=== PATIENT | male | born 1970 | race Caucasian/White ===

== ENCOUNTER 2023-01-08 16:17 | Emergency (ER) | payer BC, SELFPAY ==
[2023-01-08 16:24] VITALS: BP 149/94; PULSE 83; RESP 14; TEMP 37.1; O2SAT 98
--- NOTE | 2023-01-08 16:43 | ED.LOWEXIN ---
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 Pt has been to podiatry but notes it was a few years ago and a steroid injection was placed in the foot. 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 He additionally reports chronic right thumb pain that has also been slightly worse than usual without recent injury. He recalls having the right thumb dislocated ~6 years ago and the thumb was reduced. He doesn't feel the thumb was every reduced properly. He has continued to use the digit without difficulty but states he has pain with extension and does not feel the digit extends fully at the MCP joint. He couldn't go to work today because the pain in his foot was too severe and he requests a work excuse. He has not taken any OTC or prescription medications for symptom relief. He has no other complaints Related Data Allergies Allergy/AdvReac Type Severity Reaction Status Date / Time No Known Allergies Allergy Unverified 08/23/16 11:39 Review of Systems Musculoskeletal: Comments: refer to HPI Exam Const: General: cooperative, healthy appearing and comfortable HENMT: Head: normal to inspection Face/Nose/Sinus: Normal external nose present Mouth: Yes Normal oral and palatal mucosa present Eyes: General: appearance normal, both eyes and all related structures Conjunctivae: conjunctivae normal Sclera: sclerae normal Neck: Neck: normal visual inspection Lymphatic: no lymphadenopathy noted Resp: Effort & Inspection: normal respiratory effort and able to speak in complete sentences Auscultation: clear to auscultation bilaterally Cardio: Rate: regular rate Rhythm: regular rhythm Heart sounds: S1 normal heart sound present and S2 normal heart sound present Peripheral pulses: Peripheral pulses 2+ throughout GI: Inspection: normal to inspection Skin: General skin exam: normal color and no rashes or lesions noted Neuro: General: oriented to person, oriented to place, oriented to time, patient oriented x3 and gait normal Cognition (Neuro): normal cognition Speech: normal speech Extrem: Other: Pt has a 2 cm fixed, tender nodular eruption over the dorsal aspect of the right proximal midfoot, non fluctuant without overlying erythema or warmth. Distal PMS intact. THe right thumb ROM is intact. There is palpable hypertrophy at the base of the 1st proximal phalanx. extension and flexion against resistance is intact. No deformity, erythema or warmth noted. Course Course Emergency Course: pt advises he is here for referrals to podiatry and a provider capable of evaluating his chronic right thumb pain. Plan to refer to podiatry, hand with short steroid course until FU visit can be arranged. Imaging is deferred, as he has not experienced trauma to either area and advanced imaging is more likely indicated if there is concern for chronic ligamental injury or avascularity within the bone. Pt is agreeable with plan Level of Care: Express Care Visit ([id number]) Vital Signs Vital signs: Vital Signs Temperature 37.1 C 01/08/23 16:24 Pulse Rate 83 01/08/23 16:24 Respiratory Rate 14 01/08/23 16:24 Blood Pressure 149/94 H 01/08/23 16:24 Pulse Oximetry 98 01/08/23 16:24 Oxygen Delivery Room Air 01/08/23 16:24 Temperature 37.1 C 01/08/23 16:24 Pulse Rate 83 01/08/23 16:24 Respiratory Rate 14 01/08/23 16:24 Blood Pressure 149/94 H 01/08/23 16:24 Pulse Oximetry 98 01/08/23 16:24 Oxygen Delivery Room Air 01/08/23 16:24 MDM - Extremity Injury (Lower) MDM Narrative Medical decision making narrative: short steroid course, hand and podiatry
== END 2023-01-08 16:59 | disposition home or self-care (01) ==
PROVIDERS: Emergency Provider Nurse Practitioner Family
DX: G89.21 Chronic pain due to trauma (principal); M79.671 Pain in right foot; M79.644 Pain in right finger(s)
CPT/HCPCS: 99203; G0463

== ENCOUNTER 2023-07-01 16:13 | Emergency (ER) | payer OTHER, BC, SELFPAY ==
[2023-07-01 16:15] VITALS: BP 141/98; PULSE 87; RESP 18; TEMP 36.4; O2SAT 100
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
== END 2023-07-01 16:23 | disposition short-term general hospital (02) ==
PROVIDERS: Emergency Provider Registered Nurse
DX: S61.512A Laceration without foreign body of left wrist, initial encounter (principal); X58.XXXA Exposure to other specified factors, initial encounter; Y99.0 Civilian activity done for income or pay
CPT/HCPCS: 99212; G0463

== ENCOUNTER 2024-08-25 11:29 | Emergency (ER) | payer BC, SELFPAY ==
[2024-08-25 11:46] VITALS: BP 131/73; PULSE 69; RESP 18; TEMP 36.6; O2SAT 98
--- OUTSIDE RECORDS SUMMARY | 2024-08-25 11:49 | XMS_ITS | Patient Health Summary ---
Author Organization [facility] [employer] Address [address] [place] [address] Care Team Providers Care Soundscriber Mechanic Name Role Phone Unknown, Provider Primary Care Provider Unavaila ble Note from [facility] [employer] [facility],non-owned Affiliates and Associated Physician Practices is amultiple site organization consisting of ambulatory clinics and hospital sitesin [place], [place], [place] and [place]. This disclosure is being madepursuant to the Care Everywhere program and may not contain all information available regarding this patient. Last updated 18.[facility] [employer] Allergies No known active allergies Medications Be aware that medications may not be up to date on this document. Always verify current medications with the patient. No known medications Social History Tobacco Use Types Packs/Day Years Used Date Smoking Tobacco: Every Day Cigarettes Smokeless Tobacco: Never Tobacco Cessation:Ready to Q uit: Not Asked; Counseling Given: Not Answered Alcohol Use Standard Drinks/Week Comments Not Currently 0 (1 standard drink = 0.6 oz pur e alcohol) Sex and Gender Information Value Date Recorded Sex Assigned at Not on file Gender Identity Not on file Sexual Orientation Not on file Last Filed Vital Signs Vital Sign Reading Time Taken Comments Blood Pressure 142/80 07/01/2023 11:10 PM BAG VALVER Pulse 72 07/01/2023 11:10 PM BAG VALVER Temperature 36.4 C (97.6 F) 07/01/2023 11:10 PM BAG VALVER Respiratory Rate 17 07/01/2023 11:10 PM BAG VALVER Oxygen Saturation 96% 07/01/2023 11:10 PM BAG VALVER Inhaled Oxygen Concentration - - Weight 77.6 kg (171 lb) 07/01/2023 7:45 PM BAG VALVER Height 185.4 cm (6' 1 ) 07/01/2023 7:45 PM BAG VALVER Body Mass Index 22.56 07/01/2023 7:45 PM BAG VALVER Procedures * XR HAND LEFT 3VW OR MORE(Performed 07/01/2023) Performed for Laceration of left hand, foreign body presence unspecified, initial encounter Results * XR HAND LEFT 3VW OR MORE (07/01/2023 9:16 PM BAG VALVER) Anatomical Region Laterality Modality Wrist / Hand Radiographic Monse ging 07/01/2023 9:57 PM BAG VALVER Narrative 07/02/2023 2:36 AM BAG VALVER PROCEDURE: XR HAND LEFT 3VW OR MORE, DATE/TIME OF EXAM: 07/01/2023 9:16 PM, LOCATION [facility] INDICATION: S61.412A: Laceration of left hand, foreign body presence unspecified, initial encounter ADDITIONAL CLINICAL INFORMATION: Ordering Provider Reason For Exam: laceration COMPARISON: None. FINDINGS/IMPRESSION: Known laceration of the radial aspect of the distal forearm is not well visualized on the current study. There is no evidence of radiopaque foreign bodies. The osseous structures are intact and well aligned without acute fracture or dislocation. The joint spaces are preserved. Bone density and texture are normal. Report dictated by Adan Barbosa MD (residential mental health worker). Joe Brown MD have personally reviewed and interpreted this examination/study. > Interpreting Provider: Joe Barr MD on 07/02/2023 2:36 AM Procedure Note Joe Barr MD - 07/02/2023 PROCEDURE: XR HAND LEFT 3VW OR MORE, DATE/TIME OF EXAM: 39:16 PM, LOCATION [facility] INDICATION: S61.412A: Laceration of left hand, foreign body presence unspecified, initial encounter ADDITIONAL CLINICAL INFORMATION: Ordering Provider Reason For Exam: laceration COMPARISON: None. FINDINGS/IMPRESSION: Known laceration of the radial aspect of the distal forearm is not well visualized on the current study. There is no evidence of radiopaqueforeign bodies. The osseous structures are intact and well aligned without acutefracture or dislocation. The joint spaces are preserved. Bone density and texture are normal. Report dictated by Adan Barbosa MD (residential mental health worker). Joe Brown MD have personally reviewed and interpreted this examination/study. > Interpreting Provider: Joe Barr MD on 07/02/2023 2:36 AM Andres Chan MD [facility] Care Teams Soundscriber Mechanic Relationship Specialty Start Date End Date Unknown, Provider PCP - General 07/14/23
--- OUTSIDE RECORDS SUMMARY | 2024-08-25 11:49 | XMS_ITS | Clinical Summary ---
Author Organization [facility] Address [address] [place] [address] Care Team Providers Care Janitorial Tech Name Role Phone Marcelina Fan MD Primary Care Provider [phone] Allergies No known active allergies Medications Multiple Vitamin (MULTIVITAMIN ADULT OR) Take by mouth daily. Active Active Problems No known active problems Family History Medical History Relation Comments Hypertension Father Cancer Mother colon Relation Status Comments Father Mother Social History Tobacco Use Types Packs/Day Years Used Date Smoking Tobacco: Every Day Cigarettes Smokeless Tobacco: Never Alcohol Use Standard Drinks/Week Comments Yes 0 (1 standard drink = 0.6 oz pur e alcohol) Sex and Gender Information Value Date Recorded Sex Assigned at Not on file Legal Sex Male 10:30 PM BINGO CLERK Gender Identity Not on file Sexual Orientation Not on file Last Filed Vital Signs Vital Sign Reading Time Taken Comments Blood Pressure 137/86 09/30/2023 6:30 AM CDT Pulse 58 09/30/2023 6:30 AM CDT Temperature 36.5 C (97.7 F) 09/30/2023 9:34 AM CDT Respiratory Rate 16 09/30/2023 10:00 AM CDT Oxygen Saturation 96% 09/30/2023 10:15 AM CDT Inhaled Oxygen Concentration - - Weight 79.8 kg (176 lb) 09/23/2023 12:41 PM BINGO CLERK Height 185.4 cm (6' 1 ) 09/23/2023 12:41 PM BINGO CLERK Body Mass Index 23.22 09/23/2023 12:41 PM BINGO CLERK Plan of Treatment Health Maintenance Due Date Last Done Comments Colorectal Cancer Screening Colonoscopy (10 Years) 1968 Annual Physical 1971 Hepatitis C 1986 Hepatitis B Vaccines (1 of 3 - 19+ 3-dose series) 1987 Pneumococcal Vaccine: Pediatrics (0 to 5 Years) and At-Risk Patients (6 to 64 Years) (2 of 2 - PCV) 05/18/2018 05/18/2017 Zoster Vaccines (1 of 2) 2018 COVID-19 Vaccine (3 - 2023-2 5 season) 2024 02/27/2021, 02/06/2021 Influenza Adult (#1) 2024 05/18/2017, 04/21/2016 DTaP, Tdap and Td Vaccines ( 4 - Td or Tdap) 07/01/2033 07/01/2023, 08/20/2016, 07/11/2016 Meningococcal B Vaccine Aged Out No l onger eligible based on patient's age to complete this topic Meningococcal Vaccine Aged Out No taurus bnonie eligible based on patient's age to complete this topic RSV Immunizations Under 20 Months Aged Out No longer eligible b ased on patient's age to complete this topic Medical Devices Implanted Type Area Warehouse Loader Device Identifier Shelf Expiration Date Model / Serial / Lot Plate Synthes 1.5mm Ti H Ext 8 Hole Rt - [id number] Implanted:Qty: 1 on 09/30/2023 by Wood Foote MD at [facility] Plate Right: Thumb SYNTHES N/A [id number] / / N/A Description:Verified by Plate Synthes 1.5mm Ti Straight 6 Holes/29mm - [id number] Implanted:Qty: 1 on 09/30/2023 by Wood Foote MD at [facility] Plate Right: Thumb SYNTHES N/A 446.031 / / N/A Description:Verified by Screw Synthes 1.5 Ti Cortex Self Tap 12mm - [id number] Implanted:Qty: 4 on 09/30/2023 by Wood Foote MD at [facility] Screw Right: Thumb SYNTHES N/A [id number] / / N/A Description:Verified by Screw Synthes 1.5 Ti Cortex Self Tap 10mm - [id number] Implanted:Qty: 5 on 09/30/2023 by Wood Foote MD at [facility] Screw Right: Thumb SYNTHES N/A [id number] / / N/A Description:Verified by Screw Synthes 1.5 Ti Cortex Self Tap 8mm - [id number] Implanted:Qty: 1 on 09/30/2023 by Wood Foote MD at [facility] Screw Right: Thumb SYNTHES N/A [id number] / / N/A Description:Verified by Screw Synthes 1.5 Ti Cortex Self Tap 14mm - [id number] Implanted:Qty: 1 on 09/30/2023 by Wood Foote MD at [facility] Screw Right: Thumb SYNTHES N/A [id number] / / N/A Description:Verified by Screw Synthes 1.5 Ti Cortex Self Tap 16mm - [id number] Implanted:Qty: 1 on 09/30/2023 by Wood Foote MD at [facility] Screw Right: Thumb SYNTHES N/A [id number] / / N/A Description:Verified by Explanted Type Area Warehouse Loader Device Identifier Shelf Expiration Date Model / Serial / Lot Drill Bit Synthes 1.1 Qc 55mm - [id number] Explanted:Qty: 1 on 09/30/2023 by Wood Foote MD at [facility] Drill Right: Thumb [employer] N/A [id number] / / N/A Description:Used not implant ed Insurance C/O [employer]ER [employer] [place] [id number] Care Teams Janitorial Tech Relationship Specialty Start Date End Date Marcelina Fan MD [address] [place] [address] PCP - General INTERNAL MEDICINE 09/29/23
--- OUTSIDE RECORDS SUMMARY | 2024-08-25 11:49 | XMS_ITS | Clinical Summary ---
Author Organization [facility] Address [address] [place] [address] Phone Care Team Providers Care Wash Operator Name Role Phone Marcelina Fan MD Primary Care Provider [phone] Myles Mackay DPM Unavailable [phone] Allergies No known active allergies Medications naproxen (NAPROSYN) 500 MG TabletIndicatio ns:Synovitis of right foot Take 1 Tab by mouth 2 times daily (with meals). 60 Tab 2 8 Active Additional Information Patient not taking.Reported on 08/12/2023 Multiple Vitamin (MULTI-VITAMIN PO) Take by mouth daily. Active Active Problems Problem Noted Date Diagnosed Date Equinus contracture of right ankle 02/05/2017 Synovitis of right foot 02/05/2017 Traumatic closed displaced f racture of tarsal navicular with malunion 02/05/2017 Closed displaced fracture of navicular bone of r ight foot 02/05/2017 Encounters Date Type Department Care Team Description 07/26/2024 Transcribe Orders [facility] Patient Access Admitting [address] [place] [address] Lukas Gomez, PAC Left shoulder pain, unspecified chronicity (Primary Dx) 07/19/2024 Documentation Only [facility] [address] [place] [address] Ellyn Portillo M, PT 06/21/2024 4:45 PM TAKE OUT WAITRESS [facility] [address] [place] [address] Lukas Gomez, PAC PortilloEllyn M, PT Right shoulder pain, unspecified chronicity (Primary Dx) Discharge Disposition: Discharged to home or Selfcare 06/21/2024 Travel 06/14/2024 [facility]phone [facility] [address] [place] [address] PortilloEllyn larose M, PT Appointment 06/08/2024 3:15 PM TAKE OUT WAITRESS [facility] [address] [place] [address] Lukas Gomez, PAC Lukas Diallo, DOG RACES MANAGER Right shoulder pain, unspecified chronicity (Primary Dx) Discharge Disposition: Discharged to home or Selfcare 06/08/2024 Travel 05/31/2024 [facility] [address] [place] [address] Lukas Diallo, DOG RACES MANAGER No Show from Last 3 Months Immunizations Immunization Administration Dates Next Due TDAP Vaccine 07/01/2023,07/11/2016 Family History Medical History Relation Name Comments No Known Problems Father Cancer Mother colon Relation Name Status Comments Father Alive Mother Social History Tobacco Use Types Packs/Day Years Used Date Smoking Tobacco: Every Day Cigarettes Smokeless Tobacco: Never Alcohol Use Standard Drinks/Week Comments Yes 0 (1 standard drink = 0.6 oz pur e alcohol) occassional Sex and Gender Information Value Date Recorded Sex Assigned at Not on file Legal Sex Male 10:43 PM CDT Gender Identity Not on file Sexual Orientation Not on file Last Filed Vital Signs Vital Sign Reading Time Taken Comments Blood Pressure 117/82 08/18/2023 8:48 AM TAKE OUT WAITRESS Pulse 61 08/18/2023 8:48 AM TAKE OUT WAITRESS Temperature 36 C (96.8 F) 08/18/2023 8:48 AM TAKE OUT WAITRESS Respiratory Rate 12 08/18/2023 8:48 AM TAKE OUT WAITRESS Oxygen Saturation 99% 08/18/2023 8:48 AM TAKE OUT WAITRESS Inhaled Oxygen Concentration - - Weight 77.6 kg (171 lb) 08/12/2023 11:06 AM TAKE OUT WAITRESS Height 185.4 cm (6' 1 ) 08/12/2023 11:06 AM TAKE OUT WAITRESS Body Mass Index 22.56 08/12/2023 11:06 AM TAKE OUT WAITRESS Plan of Treatment Health Maintenance Due Date Last Done Comments Hepatitis C Virus (HCV) Screening 1968 Hepatitis B Immunization (1 of 3 - 19+ 3-dose series) 1987 Pneumococcal Immunization (5 0+ years) (2 of 2 - PCV) 05/18/2018 05/18/2017 Cologuard 2018 Immunochemical Fecal Occult Blood 2018 Zoster Immunization (1 of 2) 2018 PSA Discussion 2023 Influenza Immunization (#1) 03/20/202404/21, 04/21/2016 SARS-COV-2 Immunization ( - season) 2024 02/27/2021, 02/06/2021 Colonoscopy 08/18/2028 08/18/2023, 07/19/2016 Colorectal Cancer Screening 08/18/2028 Td Immunization Every 10 Yea rs (Adults With 1 Tdap) 07/01/2033 07/01/2023, 07/11/2016 Respiratory Syncytial Virus (RSV) Immunization (Adult) (1 - 1-dose 75+ series) 2043 08/18/2023, 07/19/2016 Pneumococcal Immunization Combined Discontinued 05/18/2017 DTaP/Tdap/Td Immunization Discontinued 2022, 07/11/2016 Meningococcal Immunization (ACWY) Aged Out No longer eligible based on patient's age to complete this topic Rotavirus Immunization Aged Out No lo nger eligible based on patient's age to complete this topic Insurance MEDICAID [place] [facility] Care Teams Wash Operator Relationship Specialty Start Date End Date Marcelina Fan MD [address] [place] [address] PCP - General Internal Medicine 11/20/16 yMles Mackay DPM [address] [place] [address] Consulting Physician Podiatry 02/05/17
--- OUTSIDE RECORDS SUMMARY | 2024-08-25 11:49 | XMS_ITS | Clinical Summary ---
Author Organization [facility] [employer] Address [address] [place] [address] Care Team Providers Care Machine Trimmer Name Role Phone Unknown, Provider Primary Care Provider Unavaila ble Source Comments [facility],non-owned Affiliates and Associated Physician Practices is amultiple site organization consisting of ambulatory clinics and hospital sitesin [place], [place], [place] and [place]. This disclosure is being madepursuant to the Care Everywhere program and may not contain all information available regarding this patient. Last updated [id number] [facility] Allergies No known active allergies Medications Be [...] Comments Blood Pressure 142/80 07/01/2023 11:10 PM GOLF CART MECHANIC Pulse 72 07/01/2023 11:10 PM GOLF CART MECHANIC Temperature 36.4 C (97.6 F) 07/01/2023 11:10 PM GOLF CART MECHANIC Respiratory Rate 17 07/01/2023 11:10 PM GOLF CART MECHANIC Oxygen Saturation 96% 07/01/2023 11:10 PM GOLF CART MECHANIC Inhaled Oxygen Concentration - - Weight 77.6 kg (171 lb) 07/01/2023 7:45 PM GOLF CART MECHANIC Height 185.4 cm (6' 1 ) 07/01/2023 7:45 PM GOLF CART MECHANIC Body Mass Index 22.56 07/01/2023 7:45 PM GOLF CART MECHANIC Plan of Treatment Health Maintenance Due Date Last Done Comments COLOGUARD (AGES 45-75) - COL ON CA SCREENING 1968 COLON MONITORING 1968 COLONOSCOPY - COLON CA SCREENING 1968 CT COLONOGRAPHY - COLON CA SCREENING 1968 Colorectal Cancer Screening 1968 FIT - COLON CA SCREENING 1968 FLEX SIG - COLON CA SCREENING 1968 LIPID TESTING 1968 HIV SCREENING 1983 HEPATITIS C SCREENING 06/22/1986 DTAP/TDAP/TD VACCINES (1 - Tdap) 1987 HEPATITIS B VACCINE (1 of 3 - 19+ 3-dose series) 1987 PNEUMOCOCCAL VACCINE 50+ (1 of 2 - PCV) 1987 PNEUMOCOCCAL VACCINE (1 of 2 - PCV) 1987 ZOSTER VACCINE (1 of 2) 2018 COVID-19 VACCINE (3 - 2023-2 5 season) 2024 02/27/2021, 02/06/2021 INFLUENZA VACCINE (#1) 2024 7, 04/21/2016 DEPRESSION SCREENING 07/20/2024 HIB VACCINE Aged Out No longer eligi ble based on patient's age to complete this topic HPV VACCINE Aged Out No longer eligi ble based on patient's age to complete this topic MENINGOCOCCAL (Group B) VACCINE Aged Out No longer eligible b ased on patient's age to complete this topic MENINGOCOCCAL VACCINE Aged Out No taurus bonnie eligible based on patient's age to complete this topic Care Teams Machine Trimmer Relationship Specialty Start Date End Date Unknown, Provider PCP - General 07/14/23
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
--- OUTSIDE RECORDS SUMMARY | 2024-08-25 11:49 | XMS_ITS | Referral Summary ---
Author Organization [facility] Address [address] [place] [address] Care Team Providers Care Party Supply Specialist Name Role Phone Unknown, Provider Primary Care Provider Unavaila ble Source Comments [facility],non-[facility] Affiliates and Associated Physician Practices is amultiple site organization consisting of ambulatory clinics and hospital sitesin [place], [place], [place] and [place]. This disclosure is being madepursuant to the Care Everywhere program and may not contain all information available regarding this patient. Last updated 18.[facility] Allergies No known active allergies Medications Be [...] Comments Blood Pressure 142/80 07/01/2023 11:10 PM FUEL HOUSE ATTENDANT Pulse 72 07/01/2023 11:10 PM FUEL HOUSE ATTENDANT Temperature 36.4 C (97.6 F) 07/01/2023 11:10 PM FUEL HOUSE ATTENDANT Respiratory Rate 17 07/01/2023 11:10 PM FUEL HOUSE ATTENDANT Oxygen Saturation 96% 07/01/2023 11:10 PM FUEL HOUSE ATTENDANT Inhaled Oxygen Concentration - - Weight 77.6 kg (171 lb) 07/01/2023 7:45 PM FUEL HOUSE ATTENDANT Height 185.4 cm (6' 1 ) 07/01/2023 7:45 PM FUEL HOUSE ATTENDANT Body Mass Index 22.56 07/01/2023 7:45 PM FUEL HOUSE ATTENDANT Plan of Treatment Not on file Care Teams Party Supply Specialist Relationship Specialty Start Date End Date Unknown, Provider PCP - General 07/14/23
--- NOTE | 2024-08-25 12:01 | ED.URI ---
HPI - URI/Sore Throat General Chief Complaint: Upper Respiratory Infection Stated Complaint: Chest Congestion/Cough Time Seen by Provider: 08/25/24 12:02 Source: patient Mode of arrival: ambulatory Limitations: no limitations History of Present Illness HPI Narrative: 54-year-old male presented for complaint of cough and chest congestion over the past few days. states he thinks he has bronchitis now. States about 5 days ago he felt he had the flu which is now improved. he has been using his girlfriend's albuterol inhaler for occasional shortness of breath during coughing fits. Denies wheezing, nausea vomiting diarrhea, fatigue or fever. Patient smokes 1 ppd. Related Data Allergies Allergy/AdvReac Type Severity Reaction Status Date / Time No Known Allergies Allergy Verified 08/25/24 11:49 Review of Systems Review of Systems: CONSTITUTIONAL: Denies body aches, fever, chills, or sweats. EYES: Denies visual changes, redness, or discharge. ENT: Denies rhinorrhea, congestion, sore throat, or otalgia. CARDIOVASCULAR: Denies chest pain, palpitations, or edema. RESPIRATORY: Reports cough, sob with exertion, wheezing. GASTROINTESTINAL: Denies abdominal pain, nausea, vomiting, or diarrhea. MUSCULOSKELETAL: Denies back pain, joint pain, or myalgia. NEUROLOGIC: Denies headache, numbness, tingling, or weakness. PSYCH: Denies depression or anxiety. All systems reviewed & are unremarkable except as noted in HPI and below PMFSH Past Medical History Medical History Fracture of femur, right, open orthopedic repair Bronchitis Pneumonia Surgical History Surgical History H/O right wrist surgery orthopedic Hx of appendectomy History of cholecystectomy Social History Social History (Updated 08/25/24 @ 12:10 by Radha Mobley APRN) Smoking packs per day: 1 Smoking cigarettes per day: 20.0 Smoking status: Current every day smoker Tobacco type: cigarettes Gender identity (if verbalized by the patient): Male Comments At time of signature, I have reviewed and agree with nursing past medical, surgical, social and family history unless otherwise noted. Please see nursing chart for further information. There is no relevant family history pertinent to the presenting complaint Exam Narrative: GENERAL: Well-appearing, in no acute distress. EYES: EOMI. No redness or drainage. Conjunctivae normal. ENT: Mucous membranes pink and moist. No rhinorrhea. TMs normal bilaterally. Throat normal. Uvula midline. NECK: Normal AROM. Supple. CHEST: No respiratory distress, , talkative in speaks in full sentences Faint scattered Wheezing. HEART: Regular rate and rhythm. No murmur appreciated. SKIN: Warm, dry, no rash. Capillary refill normal. Normal skin turgor. NEURO: Alert and oriented x3. Gait steady. PSYCH: Normal affect. Course Course Emergency Course: Patient is aware of diagnosis, understands and agrees to treatment plan. Anticipatory guidance given. Patient agrees to follow-up as directed and is aware of reasons to seek care at the emergency department. Portions of this record may have been created with voice recognition software Level of Care: Express Care Visit Vital Signs Vital signs: Vital Signs Temperature 97.8 F 08/25/24 11:46 Pulse Rate 69 08/25/24 11:46 Respiratory Rate 18 08/25/24 11:46 Blood Pressure 131/73 08/25/24 11:46 Pulse Oximetry 98 08/25/24 11:46 Oxygen Delivery Room Air 08/25/24 11:46 Temperature 97.8 F 08/25/24 11:46 Pulse Rate 69 08/25/24 11:46 Respiratory Rate 18 08/25/24 11:46 Blood Pressure 131/73 08/25/24 11:46 Pulse Oximetry 98 08/25/24 11:46 Oxygen Delivery Room Air 08/25/24 11:46 MDM - URI/Sore Throat MDM Narrative Medical decision making narrative: Discussed physical exam findings consistent with bronchitis. Advised supportive measures and signs/symptoms to go to the ER. Pt is appropriate for outpt treatment and f/u. Differential Diagnosis Differential diagnosis: Likely upper respiratory infection, sinusitis, viral infection and bronchitis Discharge Plan Discharge Clinical Impression: Bronchitis Patient Disposition: Home, Self-Care Condition: Stable Instructions: Antibiotic Form, Acute Bronchitis (ED) Additional Instructions: Acute bronchitis can be contagious because it is usually caused by infection with a virus or bacteria. It is usually for a few days but you can be contagious for up to one week. Avoid crowds until you do not have a fever and symptoms are improved Take medication as directed Recommendations Flonase spray and Zyrtec (or Claritin/Lupe) over the counter Cough syrup may cause drowsiness; avoid driving or take it at night time. Tylenol 1000mg every 8 hours as needed for pain Symptomatic treatment includes: rest, fluids, and increase humidity of the air at home. Follow up with your primary care provider as needed in 1 week Go to the ER for worsening symptoms or concerns Patient Language: Setswana Prescriptions: New methylprednisolone [Medrol (Griffin)] 4 mg tablets,dose pack See Rx Instructions .ROUTE .COMPLEX Qty: 21 0RF Rx Instructions: orally per package directions albuterol sulfate 90 mcg/actuation HFA aerosol inhaler 2 inh inhalation QID PRN (Reason: shortness of breath or wheezing) Qty: 8.5 0RF Follow-up/Referrals: Jason,COURTNEY Vargas [Primary Care Provider] - Stand Alone Forms: Work/School Release IP
== END 2024-08-25 12:12 | disposition home or self-care (01) ==
PROVIDERS: Emergency Provider Nurse Practitioner Family; PCP Physician Assistant
DX: J40 Bronchitis, not specified as acute or chronic (principal); F17.210 Nicotine dependence, cigarettes, uncomplicated
CPT/HCPCS: 99213; G0463

== ENCOUNTER 2025-04-20 13:48 | Emergency (ER) | payer OTHER, BC, SELFPAY ==
[2025-04-20 13:51] VITALS: BP 129/73; PULSE 75; RESP 16; TEMP 36.4; O2SAT 98
--- OUTSIDE RECORDS SUMMARY | 2025-04-20 13:52 | XMS_ITS | Clinical Summary ---
Author Organization [facility] Address [address] [place] [address] Care Team Providers Care Three Knife Trimmer Name Role Phone Unknown, Provider Primary Care Provider Unavaila ble Source Comments [facility],non-[facility] Affiliates and Associated Physician Practices is amultiple site organization consisting of ambulatory clinics and hospital sitesin [place], [place], [place] and [place]. This disclosure is being madepursuant to the Care Everywhere program and may not contain all information available regarding this patient. Last updated 18.[facility] Allergies No known active allergies Medications * Be aware that medications may not be up to date on this document. Alwaysverify current medications with the patient. No known [...] at Not on file Legal Sex Male 1:23 PM AGITATOR OPERATOR Gender Identity Not on file Sexual Orientation Not on file Last Filed Vital Signs Vital Sign Reading Time Taken Comments Blood Pressure 142/80 07/01/2023 11:10 PM AGITATOR OPERATOR Pulse 72 07/01/2023 11:10 PM AGITATOR OPERATOR Temperature 36.4 C (97.6 F) 07/01/2023 11:10 PM AGITATOR OPERATOR Respiratory Rate 17 07/01/2023 11:10 PM AGITATOR OPERATOR Oxygen Saturation 96% 07/01/2023 11:10 PM AGITATOR OPERATOR Inhaled Oxygen Concentration - - Weight 77.6 kg (171 lb) 07/01/2023 7:45 PM AGITATOR OPERATOR Height 185.4 cm (6' 1) 07/01/2023 7:45 PM AGITATOR OPERATOR Body Mass Index 22.56 07/01/2023 7:45 PM AGITATOR OPERATOR Plan of Treatment Health Maintenance Due Date [...] 50+ (1 of 2 - PCV) 1987 ZOSTER VACCINE (1 of 2) 2018 DEPRESSION SCREENING 07/20/2024 COVID-19 VACCINE (3 - 2024-2 6 season) 2025 02/27/2021, 02/06/2021 INFLUENZA VACCINE (#1) 2025 7, 04/21/2016 HIB VACCINE Aged Out No longer eligi ble based on patient's age to complete this topic HPV VACCINE Aged Out No longer eligi ble based on patient's age to complete this topic MENINGOCOCCAL (Group B) VACCINE SHARED DECISION-MAKING Aged Out No longer eligible based on patient's age to complete this topic MENINGOCOCCAL GROUPS A/C/Y/W VACCINE Aged Out No longer eligible b ased on patient's age to complete this topic Insurance MEDICAID [facility] [employer]ICA[employer] [address] [place] [address] Care Teams Three Knife Trimmer Relationship Specialty Start Date End Date Unknown, Provider PCP - General 07/14/23
--- OUTSIDE RECORDS SUMMARY | 2025-04-20 13:52 | XMS_ITS | Clinical Summary ---
Author Organization [facility] Address [address] [place] [address] Phone Care Team Providers Care Cytogenetics Laboratory Manager Name Role Phone Marcelina Fan MD Primary Care Provider [phone] Myles Mackay DPM Unavailable [phone] Allergies No known active allergies Medications [...] navicular bone of r ight foot 02/05/2017 Immunizations Immunization Administration Dates Next Due TDAP [...] Comments Blood Pressure 117/82 08/18/2023 8:48 AM GENERAL PRODUCTION WORKER Pulse 61 08/18/2023 8:48 AM GENERAL PRODUCTION WORKER Temperature 36 C (96.8 F) 08/18/2023 8:48 AM GENERAL PRODUCTION WORKER Respiratory Rate 12 08/18/2023 8:48 AM GENERAL PRODUCTION WORKER Oxygen Saturation 99% 08/18/2023 8:48 AM GENERAL PRODUCTION WORKER Inhaled Oxygen Concentration - - Weight 77.6 kg (171 lb) 08/12/2023 11:06 AM GENERAL PRODUCTION WORKER Height 185.4 cm (6' 1) 08/12/2023 11:06 AM GENERAL PRODUCTION WORKER Body Mass Index 22.56 08/12/2023 11:06 AM GENERAL PRODUCTION WORKER Plan of Treatment Health Maintenance Due Date Last Done Comments Hepatitis C Virus (HCV) Screening 1968 Hepatitis B Immunization (1 of 3 - 19+ 3-dose series) 1987 Cologuard 2013 Immunochemical Fecal Occult Blood 2013 Pneumococcal Immunization (5 0+ years) (2 of 2 - PCV) 05/18/2018 05/18/2017 Zoster Immunization (1 of 2) 2018 PSA Discussion 2023 Influenza Immunization (#1) 03/20/202504/21, 04/21/2016 SARS-COV-2 Immunization (3 - season) 2025 02/27/2021, 02/06/2021 Colonoscopy 08/18/2028 08/18/2023, 07/19/2016 Colorectal Cancer Screening 08/18/2028 Td Immunization Every 10 Yea rs (Adults With 1 Tdap) 07/01/2033 07/01/2023, 07/11/2016 Respiratory Syncytial Virus (RSV) Immunization (Adult) (1 - 1-dose 75+ series) 2043 Pneumococcal Immunization Combined Discontinued 05/18/2017 DTaP/Tdap/Td Immunization Discontinued 2022, 07/11/2016 Human Papillomavirus (HPV) Immunization Aged Out No longer eligible based on patient's age to complete this topic Meningococcal Immunization (ACWY) Aged Out No longer eligible based on patient's age to complete this topic Rotavirus Immunization Aged Out No lo nger eligible based on patient's age to complete this topic Insurance Care Teams Cytogenetics Laboratory Manager Relationship Specialty Start Date End Date Marcelina Fan MD [address] [place] [address] PCP - General Internal Medicine 11/20/16 Myles Mackay DPM [address] [place] [address] Consulting Physician Podiatry 02/05/17
--- OUTSIDE RECORDS SUMMARY | 2025-04-20 13:52 | XMS_ITS | Clinical Summary ---
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 Gender Identity Not on file Sexual [...] 79.8 kg (176 lb) 09/23/2023 12:41 PM PATTERN PERFORATING MACHINE OPERATOR Height 185.4 cm (6' 1) 09/23/2023 12:41 PM PATTERN PERFORATING MACHINE OPERATOR Body Mass Index 23.22 09/23/2023 12:41 PM PATTERN PERFORATING MACHINE OPERATOR Plan of Treatment Health Maintenance Due Date Last Done Comments Colorectal Cancer Screening Colonoscopy (10 Years) 1968 Annual Physical 1971 Hepatitis C 1986 Hepatitis B Vaccines (1 of 3 - 19+ 3-dose series) 1987 Pneumococcal Vaccine: 50+ Years (2 of 2 - PCV) 05/18/2018 05/18/2017 Zoster Vaccines (1 of 2) 2018 COVID-19 Vaccine (3 - 2024-2 6 season) 2025 02/27/2021, 02/06/2021 DTaP, Tdap and Td Vaccines ( 4 - Td or Tdap) 07/01/2033 07/01/2023, 08/20/2016, 07/11/2016 Meningococcal B Vaccine Aged Out No l onger eligible based on patient's age to complete this topic Meningococcal Vaccine Aged Out No taurus bonnie eligible based on patient's age to complete this topic RSV Immunizations Under 20 Months Aged Out No longer eligible b ased on patient's age to complete this topic Medical Devices Implanted Type Area Sort Manager Device Identifier Shelf Expiration Date Model / Serial / Lot Plate Synthes 1.5mm Ti H Ext 8 Hole Rt - [id number] Implanted:Qty: 1 on 09/30/2023 by Wood Foote MD at [facility] Plate Right: Thumb SYNTHES N/A [id number] / / N/A Description:Verified by Plate Synthes 1.5mm Ti Straight 6 Holes/29mm - [id number] Implanted:Qty: 1 on 09/30/2023 by Wood Foote MD at [facility] Plate Right: Thumb SYNTHES N/A 446.031 / / N/A Description:Verified by Screw Synthes 1.5 Ti Cortex Self Tap 12mm - [id number] Implanted:Qty: 4 on 09/30/2023 by Wood Foote MD at [facility] Screw Right: Thumb SYNTHES N/A [id number] / / N/A Description:Verified by Screw Synthes 1.5 Ti Cortex Self Tap 10mm - [id number] Implanted:Qty: 5 on 09/30/2023 by Wood Foote MD at [facility] Screw Right: Thumb SYNTHES N/A 400.810.96 / / N/A Description:Verified by Screw Synthes 1.5 Ti Cortex Self Tap 8mm - [id number] Implanted:Qty: 1 on 09/30/2023 by Wood Foote MD at [facility] Screw Right: Thumb SYNTHES N/A 400.808.96 / / N/A Description:Verified by Screw Synthes 1.5 Ti Cortex Self Tap 14mm - [id number] Implanted:Qty: 1 on 09/30/2023 by Wood Foote MD at [facility] Screw Right: Thumb SYNTHES N/A 400.814.96 / / N/A Description:Verified by Screw Synthes 1.5 Ti Cortex Self Tap 16mm - [id number] Implanted:Qty: 1 on 09/30/2023 by Wood Foote MD at [facility] Screw Right: Thumb SYNTHES N/A 400.816.96 / / N/A Description:Verified by Explanted Type Area Sort Manager Device Identifier Shelf Expiration Date Model / Serial / Lot Drill Bit Synthes 1.1 Qc 55mm - [id number] Explanted:Qty: 1 on 09/30/2023 by Wood Foote MD at [facility] Drill Right: Thumb [employer] N/A 310.111 / / N/A Description:Used not implant ed Insurance MEDICAID Care Teams Visual Associate Relationship Specialty Start Date End Date Marcelina Fan MD PCP - General INTERNAL MEDICINE 09/29/23
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
--- NOTE | 2025-04-20 13:57 | ED.EYEPROB ---
HPI - Eye Problem General Chief complaint: Eye Problems Stated complaint: Foreign Body in Left Eye Time Seen by Provider: 04/20/25 14:33 Source: patient, RN notes reviewed and old records reviewed Mode of arrival: ambulatory Limitations: no limitations History of Present Illness HPI Narrative: 54-year-old male presents to the [facility] with concerns for a foreign body in the eye. 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 Reports increasing pain and blurriness. States he felt the foreign body into the left eye at 4:00 pm. yesterday. Has been trying to irrigate it without relief. Last Tdap was approximately 6 year Onset (ago): hour(s) (23) Treatments Prior to Arrival: irrigated eye Related Data Home Medications ?Medication ?Instructions ?Recorded ?Confirmed ?Last Taken ?Type No Home Medications 04/20/25 04/20/25 Unknown History Allergies Allergy/AdvReac Type Severity Reaction Status Date / Time No Known Allergies Allergy Verified 04/20/25 13:50 Review of Systems Review of Systems: All systems reviewed & are unremarkable except as noted in HPI and below Constitutional: Constitutional: Reports no additional constitutional complaints Eyes: Eyes: Reports as per HPI, Reports change in vision, Reports irritation and Reports eye pain ENT: Reports system reviewed and no additional complaints, except as documented Cardiovascular: Cardiovascular: Reports no additional cardiovascular complaints, Denies chest pain and Denies dyspnea Respiratory: Respiratory: Reports no additional respiratory complaints, Denies chest congestion, Denies cough and Denies dyspnea Musculoskeletal: Musculoskeletal: Reports no additional musculoskeletal complaints Integumentary/Breasts: Skin/Breast: Reports system reviewed and no additional complaints, except as docu PMFSH Past Medical History Medical History Fracture of femur, right, open orthopedic repair Bronchitis Pneumonia Surgical History Surgical History H/O right wrist surgery orthopedic Hx of appendectomy History of cholecystectomy Social History Social History Smoking packs per day: 1 Smoking cigarettes per day: 20.0 Smoking status: Current every day smoker Tobacco type: cigarettes Gender identity (if verbalized by the patient): Male Comments At the time of my signature, I reviewed and agree with the nursing past medical, surgical, social, and family history. There is no relevant family history pertinent to the patient complaint. Exam Const: General: cooperative, healthy appearing, comfortable, no acute distress, well developed, alert and well nourished Nutritional Appearance: well nourished Orientation/consciousness: patient oriented x3 Limitations: no limitations HENMT: Head: normal to inspection Ears: hearing grossly normal bilaterally and external ears normal Mouth: Yes Normal oral and palatal mucosa present, Yes lip normal, Yes tongue normal and Yes moist mucous membranes Eyes: General: appearance normal, both eyes and all related structures Visual Marcano: normal visual marcano by confrontation Alignment and Position: alignment normal Eyelids: eyelids normal Cornea: corneas abnormal on the left foreign body Eyes/upper lids images:  1. Foreign body Neck: Neck: normal visual inspection, full ROM, no lymphadenopathy and no meningeal signs Chest: Chest palpation & inspection: normal inspection of the chest Resp: Effort & Inspection: normal respiratory effort and able to speak in complete sentences Cardio: Rate: regular rate Skin: General skin exam: normal color and no rashes or lesions noted Neuro: General: patient oriented x3, gait normal, moves all extremities and no meningeal signs Cognition (Neuro): normal cognition Speech: normal speech Gait exam (Neuro): Normal gait present Extrem: General: normal to inspection, full ROM, capillary refill normal and normal gait Psych: Appearance: grossly normal and well kempt Mental Status: mental status grossly normal Speech and movement: Normal speech and movement present and Clear speech present Affect: normal affect Attitude: cooperative Course Course Emergency Course: Patient with possibly metal foreign body definite foreign body in the left eye center pupils sending for higher level care for removal Level of Care: Express Care Visit Vital Signs Vital signs: Vital Signs Temperature 97.6 F 04/20/25 13:51 Pulse Rate 75 04/20/25 13:51 Respiratory Rate 16 04/20/25 13:51 Blood Pressure 129/73 04/20/25 13:51 Pulse Oximetry 98 04/20/25 13:51 Oxygen Delivery Room Air 04/20/25 13:51 Temperature 97.6 F 04/20/25 13:51 Pulse Rate 75 04/20/25 13:51 Respiratory Rate 16 04/20/25 13:51 Blood Pressure 129/73 04/20/25 13:51 Pulse Oximetry 98 04/20/25 13:51 Oxygen Delivery Room Air 04/20/25 13:51 Reviewed Transfer Transfered to: [facility] Transportation: Other (POV states significant other will drive. ) Transfer rationale: Patient with probable metal foreign body center pupil left eye sending for higher level of care Accepting physician: Spoke with Hilario ORTIZ, no doctor given MDM - Eye Problem MDM Narrative Medical decision making narrative: Patient sitting in exam room. Patient with almost 24 hours of foreign body left eye most likely metal. Sending for higher level of care Transfer instructions reviewed with patient to go directly to the ER. Do not ear drink. All questions have been answered, and the patient deny any further questions. Some parts of this dictation were generated by voice recognition software and may contain typographical and/or grammatical inaccuracies. Differential Diagnosis Differential diagnosis: Likely corneal abrasion, ruptured globe and other (Foreign body) Critical Care Time Critical Care Time Critical Care Time: No Discharge Plan Discharge Clinical Impression: Foreign body in eyeball, left Qualifiers: Encounter type: initial encounter Qualified Code(s): S05.52XA - Penetrating wound with foreign body of left eyeball, initial encounter Patient Disposition: Acute Care Hospital Condition: Stable Patient Language: Kazakh Prescriptions: No Action No Home Medications Follow-up/Referrals: Jason,COURTNEY Vargas [Primary Care Provider]
== END 2025-04-20 14:57 | disposition short-term general hospital (02) ==
PROVIDERS: Emergency Provider Nurse Practitioner; PCP Physician Assistant
DX: S05.52XA Penetrating wound with foreign body of left eyeball, initial encounter (principal); F17.210 Nicotine dependence, cigarettes, uncomplicated; W44.9XXA Unspecified foreign body entering into or through a natural orifice, initial encounter
CPT/HCPCS: 99212; G0463